=== PATIENT | female | born 1980 | race Caucasian/White ===

== ENCOUNTER 2017-07-16 15:22 | Emergency (ER) | payer BC ==
[2017-07-16] MEDS ORDERED: PROMETHAZINE HYDROCHLORIDE 25 MG/ML SOL IM ONE (15:38)
[2017-07-16 15:41] VITALS: TEMP 98.1
[2017-07-16] MEDS ORDERED: METOPROLOL TARTRATE 25 MG TAB PO ONE (15:41)
[2017-07-16] MEDS ORDERED: PROMETHAZINE HYDROCHLORIDE 25 MG/ML SOL ONE (15:42)
[2017-07-16] MEDS ORDERED: METOPROLOL TARTRATE 25 MG TAB ONE (15:44)
[2017-07-16 16:11] VITALS: BP 118/80; PULSE 97; RESP 20; O2SAT 96
== END 2017-07-16 16:38 | disposition home or self-care (01) ==
LOC: ED 15:22
DX: F41.9 Anxiety disorder, unspecified (principal)
CPT/HCPCS: 96372; 99283; J2550